=== PATIENT | female | born 2000 | race Caucasian/White ===

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

== ENCOUNTER 2023-11-11 17:37 | Emergency (ER) | payer OTHER, SELFPAY ==
[2023-11-11 17:38] VITALS: BP 132/101; PULSE 106; PULSE 111; RESP 16; TEMP 36.2; O2SAT 100; BMI 24.8
--- NOTE | 2023-11-11 18:17 | EDS_ITS ---
HPI <SHY Hope - Last Filed: 11/11/23 19:14> History of Present Illness Chief Complaint: Abscess Narrative Narrative: 23-year-old female presents with an umbilical abscess. The area became red 6 weeks ago. She reports going to another emergency department and had a CT scan of the abdomen which showed it was cellulitis with no fluid collection. She took doxycycline and it improved while on the antibiotics but then became red again after finishing them. She took Augmentin from her PCP with no improvement. She saw the surgeon, Dr. Sharpe, at [facility] who offered to I&D the area but states it felt indurated and she may have too much pain in the office. Instead she was placed on 10 days of clindamycin which she finished yesterday. Over the last 4 days the area has become more red, soft and swollen. She has had occasional chills but no fever. She is not diabetic or immunocompromised. [facility] <SHY Hope - Last Filed: 11/11/23 19:14> [facility] Medical History (Updated 11/11/23 @ 19:14 by SHY Hope) Anxiety Home Medications ?Medication ?Instructions ?Recorded ?Last Taken ?Type desogestrel 0.15 mg-ethinyl 1 tab PO DAILY CONTROL 03/12/19 03/11/19 History estradiol 0.03 mg tablet sulfamethoxazole 800 1 tab PO BID 7 days #14 tabs 11/11/23 Unknown Rx mg-trimethoprim 160 mg tablet (Bactrim DS) Allergy/AdvReac Type Severity Reaction Status Date / Time acetaminophen (From NyQuil) Allergy Angioedema Verified 11/11/23 17:40 dextromethorphan (From Allergy Angioedema Verified 11/11/23 17:40 NyQuil) doxylamine (From NyQuil) Allergy Angioedema Verified 11/11/23 17:40 pseudoephedrine (From NyQuil) Allergy Angioedema Verified 11/11/23 17:40 Social History Smoking Status: Former smoker ROS <SHY Hope - Last Filed: 11/11/23 19:14> ROS ED ROS Narrative Constitutional: Negative for fever. GI: Negative for nausea, vomiting. Skin: Positive for abscess. EXAM <SHY Hope - Last Filed: 11/11/23 19:14> Physical Exam Narrative Exam Narrative: CONST: Patient sitting in no acute distress. EYES: Normal inspection. NECK: Normal inspection. RESP: No respiratory distress, CTAB. CVS: Regular rate and rhythm, no murmur, no gallop. ABD: Soft and nontender, no guarding or rebound, nondistended. SKIN: 3 x 5 cm erythematous fluctuant abscess superior to the umbilicus. EXTREMITIES: Normal appearance, no pedal edema. NEURO: Alert and answering questions appropriately. PSYCH: Normal affect. Const Vital Signs: 11/11/23 17:38 11/11/23 17:38 Temperature 97.2 F L Temperature Source Temporal Pulse Rate 106 H 111 H Respiratory Rate 16 16 Blood Pressure 132/101 H 132/101 H Blood Pressure Mean 111 111 Pulse Ox 100 100 Oxygen Delivery Method Room Air Room Air <Dr. Zahra Haile DO - Last Filed: 11/16/23 08:46> Physical Exam Const Vital Signs: 11/11/23 17:38 11/11/23 17:38 Temperature 97.2 F L Temperature Source Temporal Pulse Rate 106 H 111 H Respiratory Rate 16 16 Blood Pressure 132/101 H 132/101 H Blood Pressure Mean 111 111 Pulse Ox 100 100 Oxygen Delivery Method Room Air Room Air MDM <SHY Hope - Last Filed: 11/11/23 19:14> [employer] Narrative Medical decision making narrative: History gathered from: Patient and grandma Patient has had a cellulitic area above the umbilicus x 6 weeks. She has taken 3 antibiotics with no improvement. Over the last few days the area became softer and more edemtous. She appears well and nontoxic. The area feels consistent with a superficial abscess and the rest of her abdomen is soft and nontender. I anesthetized the area with 1% lidocaine with epinephrine and used an 18-gauge needle for aspiration to confirm this is abscess. There is yellowish serous fluid. I used an 11 blade scalpel to make a small incision over the same area and express more serous fluid and explored the area with hemostats and packed with iodoform gauze. She tolerated the procedure well without complication. I prescribed Bactrim. I think it should improve now that I&D has been performed but she should be reevaluated if symptoms worsen. She was discharged in stable condition. <Dr. Zahra Haile DO - Last Filed: 11/16/23 08:46> MDM MDM Narrative Medical decision making narrative: History gathered from: Patient and grandma Patient has had a cellulitic area above the umbilicus x 6 weeks. She has taken 3 antibiotics with no improvement. Over the last few days the area became softer and more edemtous. She appears well and nontoxic. The area feels consistent with a superficial abscess and the rest of her abdomen is soft and nontender. I anesthetized the area with 1% lidocaine with epinephrine and used an 18-gauge needle for aspiration to confirm this is abscess. There is yellowish serous fluid. I used an 11 blade scalpel to make a small incision over the same area and express more serous fluid and explored the area with hemostats and packed with iodoform gauze. She tolerated the procedure well without complication. I prescribed Bactrim. I think it should improve now that I&D has been performed but she should be reevaluated if symptoms worsen. She was discharged in stable condition. I have personally performed a face to face assessment of the patient and have reviewed the DUNIA Note. I performed a substantive portion of the visit including all aspects of the following. My roa findings include: History is Patient is a 23-year-old female with history of abdominal wall/periumbilical cellulitis presenting with increased swelling of her umbilicus. She is been on multiple courses of antibiotics. She was recently seen by Dr. Sharpe and told that she might require intraoperative drainage of the site. Patient denies any new trauma. Over the past 2 to 3 days it has become more swollen and tender. No spontaneous drainage is appreciated. Physical exam is most consistent with an abscess/seroma. I&D performed by SHY. Initially needle aspiration performed which demonstrated serous fluid with some sediments. Incision and drainage then made and packing placed. I suspect this is more of a chronic abscess versus a seroma. Will place patient back on Bactrim in the meantime. Cultures obtained. At this time patient is quite well-appearing I do not think she requires further admission for IV antibiotics, blood work or emergent surgical consult. Encouraged to follow-up with her surgeon. Given return precautions to the emergency room. Other additions or changes: [None] Discharge Plan Triage Chief Complaint: Abscess ED Midlevel Provider: Stefania Alejo ED Provider: Godman,Zahra Dx/Rx/DC Orders Clinical Impression: Abdominal wall abscess, Encounter for incision and drainage procedure Instructions: ED Abscess Incision And Drainage Prescriptions: New sulfamethoxazole-trimethoprim [Bactrim DS] 800-160 mg tablet 1 tab PO BID 7 Days Qty: 14 0RF No Action desogestrel-ethinyl estradiol 1 EACH tablet 1 tab PO DAILY Patient Comments: takes at 1830 Primary Care Provider: Roberta Silvestre Referrals: Roberta Silvestre MD [Primary Care Provider] - Activity Restrictions/Additional Instructions: Take Tylenol and Motrin as needed. You can alternate every 3 hours. If the packing does not fall out over the next 2 to 3 days you can gently moisten it and remove it. It should improve now that it has been incised and drained. If symptoms worsen please be reevaluated. Print Language: Hungarian Disposition Disposition: Home, Self Care Discharge Date/Time: 11/11/23 19:28
[2023-11-11] MEDS: Lidocaine 1% /Epi 1:100 (20ml) 20 ML Vial INFILT (18:42)
[2023-11-11 19:19] VITALS: BP 108/69; PULSE 81; RESP 16; TEMP 37.1; O2SAT 97
[2023-11-11] MEDS: Acetaminophen 500 MG Tablet 1000 MG PO (19:24)
[2023-11-11] MEDS: Smz/Tmp Ds Tablet 1 TABLET PO (19:24)
== END 2023-11-11 19:28 | disposition home or self-care (01) ==
PROVIDERS: Emergency Provider Emergency Medicine; PCP Pediatrics; Visit Provider Emergency Medicine
DX: L02.211 Cutaneous abscess of abdominal wall (principal); R68.83 Chills (without fever); Z87.891 Personal history of nicotine dependence
CPT/HCPCS: 10061; 87070; 87205; 99284